=== PATIENT | male | born 1985 | race Hispanic/Latino ===

== ENCOUNTER 2017-03-05 15:16 | Emergency (ER) | payer SELFPAY ==
[2017-03-05] MEDS ORDERED: Acetaminophen/Codeine 30-300mg Tablet ONE (19:15)
[2017-03-05] MEDS ORDERED: Ibuprofen 800 MG TAB ONE (19:16)
== END 2017-03-05 19:20 | disposition home or self-care (01) ==
LOC: ERS 15:16
DX: S16.1XXA Strain of muscle, fascia and tendon at neck level, initial encounter (principal); V43.52XA Car driver injured in collision with other type car in traffic accident, initial encounter
CPT/HCPCS: 99284